=== PATIENT | female | born 1965 | race American Indian/Alaskan Native ===

== ENCOUNTER 2018-09-19 21:04 | Emergency (ER) | payer MEDICAID ==
[2018-09-19] MEDS ORDERED: KEPPRA 1,000 MG/NS 0.75% 100ML 1,000 MG/100 ML BAG IV ONE ×2 (21:12→21:32)
--- NOTE | 2018-09-19 21:56 | Cat Scan Report ---
FINAL REPORT PROCEDURE: CT HEAD/BRAIN WO CON TECHNIQUE: Computerized tomography of the head was performed without contrast material. HISTORY: sz ams COMPARISON: 03/05/2016. FINDINGS: Skull and scalp: Evidence of prior right parietal craniotomy and bilateral parietal guido holes.. Paranasal sinuses: Normal. Ventricles and subarachnoid spaces: Are prominent consistent with cerebral atrophy appropriate for pa tient's age.. Cerebrum: A large area of encephalomalacia involving the right parietal lobe with evidence of a prior right parietal craniotomy. An acute intra-axial or extra-axial hemorrhage or mass effect is not iden tified.. Cerebellum and brainstem: No evidence of hemorrhage, acute infarction or mass. Vasculature: Normal. Comments: None. IMPRESSION: No acute intracranial abnormality Stable appearance of right parietal encephalomalacia as seen on the prior study with evidence of prio r surgery.
[2018-09-19 22:10] LABS: Hematocrit 31.5 % (30.3-42.9); Hemoglobin 10.2 gm/dl (10.1-14.3); Mean Corpuscular HGB Conc 33 % (30-34); Mean Corpuscular Volume 95 fl (79-97); Platelet Count 277 K/mm3 (140-440); Red Blood Count 3.32 M/mm3 (3.65-5.03); Red Cell Distribution Width 13.6 % (13.2-15.2)
--- NOTE | 2018-09-19 22:23 | Emergency Department Report ---
ED General Adult HPI - General Chief complaint: Seizure Stated complaint: SEIZURE Time Seen by Provider: 09/19/18 21:11 Source: patient, family, EMS (ems notes not available at time of chart dictation. Verbal report received from EMS.), RN notes reviewed, old records reviewed Mode of arrival: Stretcher Limitations: Altered Mental Status - History of Present Illness Initial comments: This is a 52-year-old female. Her past medical history includes stroke, reported history of left-sided weakness, bipolar disorder, seizures. Patient's seizure medications include Keppra, 1500 mg twice daily, Lamictal, 150 mg once daily, and valproic acid, 750 mg, once daily. She is accompanied by her . As per verbal report from EMS, patient had 3-4 seizures today. Patient's family reports that patient was in the bed. There is no history of antecedent trauma. Family denies prodromal symptoms. EMS gave Ativan and Versed in the field. They reported normal Accu-Chek. In the emergency room, the patient was moving 4 extremities but was somewhat con fused. The patient could not describe exacerbating or relieving factors, qualitative nature of her symptoms, or radiation of her symptoms. As per her , there are no fevers, vomiting, chest pain, abdominal pain, and there is no urinary symptoms that he is aware of. Patient is currently slee ping in her stretcher, and in no acute distress. -: Sudden Radiation: other Quality: other Consistency: other Improves with: medication Worsens with: other Associated Symptoms: seizure - Related Data Home Medications Medication Instructions Recorded Confirmed Last Taken Venlafaxine [Effexor] 1 tab PO DAILY 03/13/15 09/19/18 08/10/18 clonazePAM 1 mg PO BID PRN 04/09/16 08/11/18 08/10/18 lamoTRIgine [LaMICtal] 150 mg PO BID 04/09/16 09/19/18 08/10/18 Previous Rx's Medication Instructions Recorded Last Taken Type levETIRAcetam [Keppra TAB] 1,500 mg PO BID #60 tablet 07/01/14 08/10/18 Rx Oxycodone HCl/Acetaminophen 1 each PO Q6HR PRN #20 tablet 08/04/16 08/10/18 Rx [Percocet 10/325 mg] Sulfamethoxazole/Trimethoprim 1 each PO BID #20 tablet 08/11/18 Unknown Rx [Bactrim DS TAB] lamoTRIgine [LaMICtal] 150 mg PO QDAY #30 tab 09/20/18 Unknown Rx Allergies Allergy/AdvReac Type Severity Reaction Status Date / Time aspirin Allergy Unknown Verified 10/04/15 10:43 latex Allergy Rash Verified 10/04/15 10:43 tetracycline [Tetracycline] Allergy Unknown Verified 10/04/15 10:43 ED Review of Systems ROS: Stated complaint: SEIZURE Other details as noted in HPI Comment: Unobtainable due to pts medical conditions ED Past Medical Hx - Past Medical History Previous Medical History?: Yes Hx Hypertension: Yes Hx CVA: Yes (2010) Hx Diabetes: Yes Hx Liver Disease: Yes Hx Sickle Cell Disease: Yes Hx Seizures: Yes Hx Psychiatric Treatment: Yes (BIPOLAR, cutter) Additional medical history: lupus - Surgical History Past Surgical History?: Yes Additional Surgical History: 2 brain surgeries, metal plate in head, GASTRIC BYPASS. HYSTERECTOMY - Social History Smoking Status: Never Smoker Substance Use Type: None - Medications Home Medications: Home Medications Medication Instructions Recorded Confirmed Last Taken Type levETIRAcetam [Keppra TAB] 1,500 mg PO BID #60 tablet 07/01/14 09/19/18 08/10/18 Rx Venlafaxine [Effexor] 1 tab PO DAILY 03/13/15 09/19/18 08/10/18 History clonazePAM 1 mg PO BID PRN 04/09/16 08/11/18 08/10/18 History lamoTRIgine [LaMICtal] 150 mg PO BID 04/09/16 09/19/18 08/10/18 History Oxycodone HCl/Acetaminophen 1 each PO Q6HR PRN #20 tablet 08/04/16 08/11/18 08/10/18 Rx [Percocet 10/325 mg] Sulfamethoxazole/Trimethoprim 1 each PO BID #20 tablet 08/11/18 Unknown Rx [Bactrim DS TAB] lamoTRIgine [LaMICtal] 150 mg PO QDAY #30 tab 09/20/18 Unknown Rx ED Physical Exam - General Limitations: Altered Mental Status, Physical Limitation General appearance: lethargic - Head Head exam: Present: atraumatic, normocephalic - Eye Eye exam: Present: normal appearance, PERRL - ENT ENT exam: Present: normal exam, normal orophraynx, mucous membranes moist, normal external ear exam - Neck Neck exam: Present: normal inspection, full ROM. Absent: tenderness, meningismus - Respiratory Respiratory exam: Present: normal lung sounds bilaterally. Absent: respiratory distress - Cardiovascular Cardiovascular Exam: Present: normal rhythm, tachycardia, normal heart sounds. Absent: systolic murmur, diastolic murmur, rubs, gallop - GI/Abdominal GI/Abdominal exam: Present: soft. Absent: distended, tenderness, guarding, rebound, rigid, pulsatile mass - Extremities Exam Extremities exam: Present: normal inspection, other (2+ pulses noted in the bilateral upper, lower extremities. Compartments soft. No long bony tenderness. The pelvis is stable.). Absent: pedal edema, joint swelling, calf tenderness - Back Exam Back exam: Present: normal inspection. Absent: tenderness, CVA tenderness (R), paraspinal tenderness, vertebral tenderness - Neurological Exam Neurological exam: Present: altered, other (there is no facial droop. Patient noted to be moving 4 extremities. Patient is confused and postictal. Unable to perform detailed neurologic examination secondary to postictal state, and prehospital administration of benzodiazepines) - Skin Skin exam: Present: warm, dry, intact, normal color. Absent: rash ED Course Vital Signs 09/19/18 09/19/18 09/19/18 21:09 21:10 21:15 Temperature 95.8 F L Pulse Rate 101 H 103 H 104 H Respiratory 13 18 14 Rate Blood Pressure 124/75 124/75 O2 Sat by Pulse 100 96 94 Oximetry 09/19/18 09/19/18 09/19/18 21:51 22:01 22:15 Temperature Pulse Rate 89 86 Respiratory 13 13 Rate Blood Pressure 112/73 112/73 119/80 O2 Sat by Pulse 95 94 95 Oximetry 09/19/18 09/19/18 09/19/18 22:31 22:45 23:01 Temperature Pulse Rate 85 84 83 Respiratory 12 13 13 Rate Blood Pressure 119/80 119/80 119/80 O2 Sat by Pulse 95 97 96 Oximetry 09/19/18 09/19/18 09/19/18 23:15 23:31 23:35 Temperature Pulse Rate 84 87 86 Respiratory 12 16 11 L Rate Blood Pressure 118/73 118/73 118/73 O2 Sat by Pulse 96 97 97 Oximetry 09/19/18 09/19/18 09/20/18 23:37 23:45 00:01 Temperature 97.6 F Pulse Rate 84 83 Respiratory 14 12 Rate Blood Pressure 118/73 118/73 O2 Sat by Pulse 96 98 Oximetry 09/20/18 09/20/18 09/20/18 00:15 00:31 00:45 Temperature Pulse Rate 84 86 84 Respiratory 13 13 13 Rate Blood Pressure 118/73 118/73 118/73 O2 Sat by Pulse 96 96 95 Oximetry 09/20/18 09/20/18 09/20/18 01:01 01:15 01:31 Temperature Pulse Rate 84 83 84 Respiratory 15 14 13 Rate Blood Pressure 118/73 132/79 132/79 O2 Sat by Pulse 96 97 96 Oximetry 09/20/18 09/20/18 09/20/18 01:45 02:01 02:15 Temperature Pulse Rate 83 82 83 Respiratory 13 16 12 Rate Blood Pressure 132/79 132/79 131/80 O2 Sat by Pulse 96 96 97 Oximetry 09/20/18 09/20/18 02:31 02:42 Temperature 97.6 F Pulse Rate 82 Respiratory 13 Rate Blood Pressure 131/80 O2 Sat by Pulse 97 Oximetry - Reevaluation(s) Reevaluation #1: 09/19/18 23:13 X-ray of the chest, interpreted by radiology, negative for acute disease. No documented fever, no cough, no hypoxia, no focal pulmonary findings. Clinically doubt pneumonia, aspiration at this time. Reevaluation #2: 09/20/18 00:02 Hypothermia resolved. Laboratory testing unremarkable. Urinalysis is not consistent with urinary tract infection. Still postictal. No additional convulsive events noted. Reevaluation #3: 09/20/18 03:29 The patient has been reassessed multiple times by this provider. In the 6 hours that she has been in the emergency department, the patient has not had tomy tional convulsive events. I go back to evaluate the patient, and she is speaking to me in full sentences, alert to name, year, andthat her neurolog[place]." She is able to walk with minimal assistance. Her feels comfortable to take her home. We will refill her Lamictal prescription, and she is counseled to not operate motor vehicles for the next 6 months, to take her seizure medication, and to follow up with an outpatient neurology specialist or her private neurologist. The patient's other medications, valproic acid, Keppra, appeared to be full. It appears that Lamictal is feeling prescription she requires a refill on. 09/20/18 03:31 ED Medical Decision Making - Lab Data Result diagrams: 09/19/18 21:48 09/19/18 21:48 Vital Signs 09/19/18 09/19/18 09/19/18 21:09 21:10 21:15 Temperature 95.8 F L Pulse Rate 101 H 103 H 104 H Respiratory 13 18 14 Rate Blood Pressure 124/75 124/75 O2 Sat by Pulse 100 96 94 Oximetry 09/19/18 21:51 Temperature Pulse Rate Respiratory Rate Blood Pressure 112/73 O2 Sat by Pulse 95 Oximetry Lab Results 09/19/18 09/19/18 Range/Units 21:48 22:12 WBC 6.6 (4.5-11.0) K/mm3 RBC 3.32 L (3.65-5.03) M/mm3 Hgb 10.2 (10.1-14.3) gm/dl Hct 31.5 (30.3-42.9) % MCV 95 (79-97) fl MCH 31 (28-32) pg MCHC 33 (30-34) % RDW 13.6 (13.2-15.2) % Plt Count 277 (140-440) K/mm3 POC Glucose 136 H (70-105) Lab Results 09/19/18 09/19/18 09/19/18 Range/Units 21:48 21:48 21:48 WBC 6.6 (4.5-11.0) K/mm3 RBC 3.32 L (3.65-5.03) M/mm3 Hgb 10.2 (10.1-14.3) gm/dl Hct 31.5 (30.3-42.9) % MCV 95 (79-97) fl MCH 31 (28-32) pg MCHC 33 (30-34) % RDW 13.6 (13.2-15.2) % Plt Count 277 (140-440) K/mm3 Sodium 141 (137-145) mmol/L Potassium 4.6 (3.6-5.0) mmol/L Chloride 103.8 (98-107) mmol/L Carbon Dioxide 29 (22-30) mmol/L Anion Gap 13 mmol/L BUN 16 (7-17) mg/dL Creatinine 1.1 (0.7-1.2) mg/dL Estimated GFR > 60 ml/min BUN/Creatinine Ratio 15 % Glucose 168 H (65-100) mg/dL POC Glucose (70-105) Calcium 9.2 (8.4-10.2) mg/dL Total Bilirubin 0.20 (0.1-1.2) mg/dL AST 19 (5-40) units/L ALT 13 (7-56) units/L Alkaline Phosphatase 119 (35-129) units/L Total Creatine Kinase 154 H (30-135) units/L Total Protein 7.4 (6.3-8.2) g/dL Albumin 3.8 L (3.9-5) g/dL Albumin/Globulin Ratio 1.1 % Salicylates < 0.3 L (2.8-20.0) mg/dL Acetaminophen (10.0-30.0) ug/mL Valproic Acid < 2.8 L (50-100) ug/mL Plasma/Serum Alcohol (0-0.07) % 09/19/18 09/19/18 09/19/18 Range/Units 21:48 21:48 22:12 WBC (4.5-11.0) K/mm3 RBC (3.65-5.03) M/mm3 Hgb (10.1-14.3) gm/dl Hct (30.3-42.9) % MCV (79-97) fl MCH (28-32) pg MCHC (30-34) % RDW (13.2-15.2) % Plt Count (140-440) K/mm3 Sodium (137-145) mmol/L Potassium (3.6-5.0) mmol/L Chloride (98-107) mmol/L Carbon Dioxide (22-30) mmol/L Anion Gap mmol/L BUN (7-17) mg/dL Creatinine (0.7-1.2) mg/dL Estimated GFR ml/min BUN/Creatinine Ratio % Glucose (65-100) mg/dL POC Glucose 136 H (70-105) Calcium (8.4-10.2) mg/dL Total Bilirubin (0.1-1.2) mg/dL AST (5-40) units/L ALT (7-56) units/L Alkaline Phosphatase (35-129) units/L Total Creatine Kinase (30-135) units/L Total Protein (6.3-8.2) g/dL Albumin (3.9-5) g/dL Albumin/Globulin Ratio % Salicylates (2.8-20.0) mg/dL Acetaminophen < 5.0 L (10.0-30.0) ug/mL Valproic Acid (50-100) ug/mL Plasma/Serum Alcohol < 0.01 (0-0.07) % - EKG Data -: EKG Interpreted by Me EKG shows normal: sinus rhythm Rate: normal - EKG Data 09/19/18 22:44 Motion artifact. Sinus tachycardia. Normal axis, QTC 446 ms. Motion artifact and V3. Low vo ltage in the lateral leads. Abnormal EKG. Appears grossly unchanged from prior EKGs from February 2009, with the exception of low voltage. - Radiology Data Radiology results: report reviewed, image reviewed interpreted by me: X-ray of the chest shows possible right lower lobe atelectasis versus pneumonia. Otherwise, no acute disease. Findings [facility] [address] [place] [address] Cat Scan Report Signed Patient: KARLEE PADGETT MR#: [id number] : 1965 Acct:[id number] Age/Sex: 52 / F ADM Date: 09/19/18 Loc: ED Attending Dr: Ordering Physician: BEATRIZ AJ MD Date of Service: 09/19/18 Procedure(s): CT head/brain wo con Accession Number(s): [id number] cc: BEATRIZ AJ MD FINAL REPORT PROCEDURE: CT HEAD/BRAIN WO CON TECHNIQUE: Computerized tomography of the head was performed without contrast material. HISTORY: sz ams COMPARISON: 03/05/2016. FINDINGS: Skull and scalp: Evidence of prior right parietal craniotomy and bilateral parietal guido holes.. Paranasal sinuses: Normal. Ventricles and subarachnoid spaces: Are prominent consistent with cerebral atrophy appropriate for patient's age.. Cerebrum: A large area of encephalomalacia involving the right parietal lobe with evidence of a prior right parietal craniotomy. An acute intra-axial or extra-axial hemorrhage or mass effect is not identified.. Cerebellum and brainstem: No evidence of hemorrhage, acute infarction or mass. Vasculature: Normal. Comments: None. IMPRESSION: No acute intracranial abnormality Stable appearance of right parietal encephalomalacia as seen on the prior study with evidence of prior surgery. Transcribed By: [facility] [place] Dictated By: JACK BAH Electronically Authenticated By: JACK BAH Signed Date/Time: 09/19/18 0723 - Medical Decision Making Differential diagnosis, including but not limited to, medication noncompliance, aspiration pneumonia, pneumonia, urinary tract infection, seizure, psychogenic seizure, postictal state Assessment and plan: 52-year-old female with documented history of seizure disorder, with reported history of multiple seizures today, now somewhat altered and postictal. Hypothermia reviewed and appreciated, this is most likely secondary to environmental exposure. There is no corroborating history from her to suggest an invasive bacterial infection. Thus far, the patient has been observed in the emergency room for approximately 90 minutes, without additional convulsive activity. She was given multiple rounds of benzodiazepines in the field, and is somewhat somnolent, this may be multifactorial, as the patient may also be postictal. She is protecting her airway at this time. Screening laboratory studies unremarkable. Valproic acid level noted to be subtherapeutic. Patient will be treated empirically with valproic acid, Keppra, and Lamictal. Urinalysis pending at this time. Critical care attestation.: If time is entered above; I have spent that time in minutes in the direct care of this critically ill patient, excluding procedure time. ED Disposition Clinical Impression: History of seizure, Medication refill Disposition: - TO HOME OR SELFCARE Is pt being admited?: No Does the pt Need Aspirin: No Condition: Good Additional Instructions: Do not drive or operate motor vehicles for the next 6 months. Please make certain to remain compliant with seizure medications. Noncompliance with seizure medications may result in breakthrough seizure, which in turn can cause disability, paralysis, , loss of quality of life. Urine toxicology screen demonstrated the presence of marijuana If patient is consuming cannabis, marijuana, I recommend that she discontinue, as this may make the patient more prone to having seizures. Patient should also avoid external exposure to cannabis, illicit substances. Please follow-up with your private neurologist within the next 2 weeks, or follow up with any of the listed neurology specialist, within the next 2 weeks. Please return to the emergency room, with new pain, worsened pain, migration of pain, projectile vomiting, change in mental status, confusion, inability to speak, inability to breathe,, worsened or different symptoms. Referrals: RAJEEV PRIETO MD [Referring] - 7-10 days VALORIE SIMPSON MD [Staff Physician] - 7-10 days NA SARAVIA MD [Staff Physician] - 7-10 days
[2018-09-19 22:24] LABS: Alanine Aminotransferase 13 units/L (7-56); Albumin 3.8 g/dL (3.9-5); BUN/Creatinine Ratio 15; Blood Urea Nitrogen 16 mg/dL (7-17); Calcium 9.2 mg/dL (8.4-10.2); Hemolysis Index 13
[2018-09-19] MEDS ORDERED: NACL 0.9% IV ONE (22:35)
[2018-09-19] MEDS ORDERED: DEPACON IV ONE (22:35)
[2018-09-19] MEDS ORDERED: LaMICtal PO ONE (22:40)
--- NOTE | 2018-09-19 23:12 | XRay Report ---
FINAL REPORT PROCEDURE: XR CHEST 1V AP TECHNIQUE: Chest radiograph anteroposterior view. CPT 51320 HISTORY: breakthrough seizure, questionable aspiration vers COMPARISON: No prior studies are available for comparison. FINDINGS: Heart: Normal. Mediastinum/Vessels: Normal. Lungs/Pleural space: Normal. Bony thorax: No acute osseous abnormality. Life support devices: None. IMPRESSION: No acute cardiopulmonary abnormality.
[2018-09-19 23:55] LABS: Bilirubin,Urine NEG (Negative); Blood,Urine NEG (Negative); Color,Urine Yellow (Yellow); Protein,Urine <15 mg/dL mg/dL (Negative); Urobilinogen,Urine < 2.0 mg/dL (<2.0)
[2018-09-20 00:02] LABS: Amphetamine Screen,Urine PRESUMPTIVE NEGATIVE; Cocaine Screen,Urine PRESUMPTIVE NEGATIVE; Methadone Screen,Urine PRESUMPTIVE NEGATIVE; Opiate Screen,Urine PRESUMPTIVE NEGATIVE
[2018-09-20 00:18] LABS: Benzodiazepines Screen,Urine PRESUMPTIVE POSITIVE; Cannabinoid Screen,Urine PRESUMPTIVE POSITIVE
[2018-09-20 04:36] VITALS: BP 145/93
== END 2018-09-20 04:00 | disposition home or self-care (01) ==
LOC: ED 21:04
DX: G40.909 Epilepsy, unspecified, not intractable, without status epilepticus (principal); Z76.0 Encounter for issue of repeat prescription; F31.9 Bipolar disorder, unspecified; I10 Essential (primary) hypertension; E11.9 Type 2 diabetes mellitus without complications; M32.9 Systemic lupus erythematosus, unspecified; Z98.84 Bariatric surgery status; Z90.710 Acquired absence of both cervix and uterus; Z88.6 Allergy status to analgesic agent; Z88.1 Allergy status to other antibiotic agents; Z91.040 Latex allergy status
CPT/HCPCS: 36415; 70450; 71045; 80053; 80164; 80307; 81001; 82550; 82962; 85027; 93005; 93010; 96365; 96367; 99285; G0480; J1953; 80320

== ENCOUNTER 2019-03-30 14:41 | Emergency (ER) | payer MEDICAID ==
[2019-03-30 15:20] VITALS: BP 145/88
--- NOTE | 2019-03-30 15:20 | Event Note ---
ED Screening Note Date of service: 03/30/19 Time: 15:17 ED Screening Note: This is a 53 y.o. F. that presents to the ER with right thumb pain s/p fall 3 weeks ago. This initial assessment/diagnostic orders/clinical plan/treatment(s) is/are subject to change based on patients health status, clinical progression and re- assessment by fellow clinical providers in the ED. Further treatment and workup at subsequent clinical providers discretion. Patient/guardian urged not to elope from the ED as their condition may be serious if not clinically assessed and managed. Initial orders include: XR right fingers
--- NOTE | 2019-03-30 15:48 | XRay Report ---
RIGHT HAND 3 VIEWS INDICATION: pain and swelling 1st digit, r/o fracture. COMPARISON: No relevant prior imaging study available. FINDINGS: No acute, displaced fracture location is seen. No foreign bodies. IMPRESSION: 1. No acute findings. Signer Name: Tommie Hawkins MD Signed: 03/30/2019 3:43 PM Workstation Name: [id number]
--- NOTE | 2019-03-30 16:36 | Emergency Department Report ---
ED Upper Extremity Inj HPI - General Chief Complaint: Fall Stated Complaint: HAND PAIN Time Seen by Provider: 03/30/19 15:17 Source: patient Mode of arrival: Ambulatory Limitations: No Limitations - History of Present Illness Initial Comments: 53-year-old obese -Serbian female with past medical history of diabetes, hypertension, bipolar disorder, seizures since emerge department complaining of continued right thumb pain status post fall that occurred 2 weeks ago. Patient states his walking up steps also balance and fell forward hitting a door with her thumb, causing pain and swelling to the thumb since the onset, which is continuing to blinker today. No numbness or tingling. No reinjury. Complaint: Injury to:: right, hand -: Sudden Other Extremity Injury: Fingers: Right Other Injuries: none Handedness: right Place: home Improves With: none Worsens With: immobilization Context: fall, direct blow Associated Symptoms: denies other symptoms - Related Data Home Medications Medication Instructions Recorded Confirmed Last Taken Venlafaxine [Effexor] 1 tab PO DAILY 03/13/15 09/19/18 08/10/18 clonazePAM 1 mg PO BID PRN 04/09/16 08/11/18 08/10/18 lamoTRIgine [LaMICtal] 150 mg PO BID 04/09/16 09/19/18 08/10/18 Previous Rx's Medication Instructions Recorded Last Taken Type levETIRAcetam [Keppra TAB] 1,500 mg PO BID #60 tablet 07/01/14 08/10/18 Rx Oxycodone HCl/Acetaminophen 1 each PO Q6HR PRN #20 tablet 08/04/16 08/10/18 Rx [Percocet 10/325 mg] Sulfamethoxazole/Trimethoprim 1 each PO BID #20 tablet 08/11/18 Unknown Rx [Bactrim DS TAB] lamoTRIgine [LaMICtal] 150 mg PO QDAY #30 tab 09/20/18 Unknown Rx traMADol [Ultram] 50 mg PO Q6HR PRN #10 tablet 03/30/19 Unknown Rx Allergies Allergy/AdvReac Type Severity Reaction Status Date / Time aspirin Allergy Unknown Verified 03/30/19 14:45 latex Allergy Rash Verified 03/30/19 14:45 tetracycline [Tetracycline] Allergy Unknown Verified 03/30/19 14:45 ED Review of Systems ROS: Stated complaint: HAND PAIN Other details as noted in HPI Comment: All other systems reviewed and negative ED Past Medical Hx - Past Medical History Previous Medical History?: Yes Hx Hypertension: Yes Hx CVA: Yes (2010) Hx Diabetes: Yes Hx Liver Disease: Yes Hx Sickle Cell Disease: Yes Hx Seizures: Yes Hx Psychiatric Treatment: Yes (BIPOLAR, cutter) Additional medical history: lupus - Surgical History Past Surgical History?: Yes Additional Surgical History: 2 brain surgeries, metal plate in head, GASTRIC BYPASS. HYSTERECTOMY - Social History Smoking Status: Never Smoker Substance Use Type: None - Medications Home Medications: Home Medications Medication Instructions Recorded Confirmed Last Taken Type levETIRAcetam [Keppra TAB] 1,500 mg PO BID #60 tablet 07/01/14 09/19/18 08/10/18 Rx Venlafaxine [Effexor] 1 tab PO DAILY 03/13/15 09/19/18 08/10/18 History clonazePAM 1 mg PO BID PRN 04/09/16 08/11/18 08/10/18 History lamoTRIgine [LaMICtal] 150 mg PO BID 04/09/16 09/19/18 08/10/18 History Oxycodone HCl/Acetaminophen 1 each PO Q6HR PRN #20 tablet 08/04/16 08/11/18 08/10/18 Rx [Percocet 10/325 mg] Sulfamethoxazole/Trimethoprim 1 each PO BID #20 tablet 08/11/18 Unknown Rx [Bactrim DS TAB] lamoTRIgine [LaMICtal] 150 mg PO QDAY #30 tab 09/20/18 Unknown Rx traMADol [Ultram] 50 mg PO Q6HR PRN #10 tablet 03/30/19 Unknown Rx ED Physical Exam - General Limitations: No Limitations General appearance: alert, in no apparent distress - Head Head exam: Present: atraumatic, normocephalic - Eye Eye exam: Present: normal appearance, PERRL, EOMI Pupils: Present: normal accommodation - ENT ENT exam: Present: mucous membranes moist - Neck Neck exam: Present: normal inspection - Respiratory Respiratory exam: Present: normal lung sounds bilaterally. Absent: respiratory distress - Cardiovascular Cardiovascular Exam: Present: regular rate, normal rhythm. Absent: systolic murmur, diastolic murmur, rubs, gallop - GI/Abdominal GI/Abdominal exam: Present: soft, normal bowel sounds - Extremities Exam Extremities exam: Present: normal inspection - Expanded Upper Extremity Exam Right Hand Wrist exam: Present: tenderness (to the base of the phone, the area of the snuffbox. There is pain with flexion. Strength is 45 due to pain. Pulses 2+. Capillary refills are brisk.) Neuro motor exam: Present: thumb opposition intact Neurosensory exam: Present: ulnar nerve intact, median nerve intact Vascular: Present: normal capillary refill - Back Exam Back exam: Present: normal inspection - Neurological Exam Neurological exam: Present: alert, oriented X3 - Psychiatric Psychiatric exam: Present: normal affect, normal mood - Skin Skin exam: Present: warm, dry, intact, normal color. Absent: rash ED Course Vital Signs 03/30/19 15:18 Temperature 98.3 F Pulse Rate 110 H Respiratory 18 Rate Blood Pressure 145/88 [Left] O2 Sat by Pulse 99 Oximetry Critical care attestation.: If time is entered above; I have spent that time in minutes in the direct care of this critically ill patient, excluding procedure time. ED Disposition Clinical Impression: Strain of thumb Disposition: DC-01 TO HOME OR SELFCARE Is pt being admited?: No Does the pt Need Aspirin: No Condition: Stable Instructions: Muscle Strain (ED), Finger Sprain (ED) Prescriptions: traMADol [Ultram] 50 mg PO Q6HR PRN #10 tablet PRN Reason: Pain Referrals: AGNES AWAD MD [Primary Care Provider] - 3-5 Days SARAH ABAD MD [Staff Physician] - 3-5 Days
== END 2019-03-30 16:42 | disposition home or self-care (01) ==
LOC: ED 14:41
DX: S56.011A Strain of flexor muscle, fascia and tendon of right thumb at forearm level, initial encounter (principal); I10 Essential (primary) hypertension; E11.9 Type 2 diabetes mellitus without complications; F31.9 Bipolar disorder, unspecified; M32.9 Systemic lupus erythematosus, unspecified; Z88.6 Allergy status to analgesic agent; Z91.040 Latex allergy status; Z88.1 Allergy status to other antibiotic agents; Z79.899 Other long term (current) drug therapy; Z86.73 Personal history of transient ischemic attack (TIA), and cerebral infarction without residual deficits; Z98.84 Bariatric surgery status; Z90.710 Acquired absence of both cervix and uterus; Z98.890 Other specified postprocedural states; W04.XXXA Fall while being carried or supported by other persons, initial encounter; Y93.89 Activity, other specified; Y92.098 Other place in other non-institutional residence as the place of occurrence of the external cause; Y99.8 Other external cause status
CPT/HCPCS: 99283

== ENCOUNTER 2019-09-29 15:18 | Emergency (ER) | payer MEDICAID ==
[2019-09-29 18:56] VITALS: BP 141/87
--- NOTE | 2019-09-29 19:05 | Event Note ---
ED Screening Note ED Screening Note: pt presents for a refill of her pain medication and blood pressure medication states she sees a pain specialist states she ran out of her pain medication and wants prescriptions advised pt that we could not write narcotic prescriptions for chronic pain and she would need to see her pcp or pain specialist advised pt that she could wait to be seen by a provider to be treated in the emergency department but we could not just write a prescriptions for narcotics, she became angry and states she is going to leave the emergency room if we were not going to write her narcotics she states she has the chronic pain from a chronic stroke she denies any symptoms at all, just states she has chronic pain according to the [facility] aware she was given oxycodone on 09/15 she was also given oxycodone on 09/04 This initial assessment/diagnostic orders/clinical plan/treatment(s) is/are subject to change based on patients health status, clinical progression and re- assessment by fellow clinical providers in the ED. Further treatment and workup at subsequent clinical providers discretion. Patient/guardian urged not to elope from the ED as their condition may be serious if not clinically assessed and managed.
== END 2019-09-29 19:01 | disposition left against medical advice (07) ==
LOC: ED 15:18
DX: Z76.0 Encounter for issue of repeat prescription (principal); Z53.21 Procedure and treatment not carried out due to patient leaving prior to being seen by health care provider

== ENCOUNTER 2021-02-16 12:06 | Outpatient (CLI) | payer MEDICAID ==
--- NOTE | 2021-02-16 14:46 | Cat Scan Report ---
CT ABDOMEN AND PELVIS WITHOUT CONTRAST INDICATION / CLINICAL INFORMATION: CALCULUS OF KIDNEY. TECHNIQUE: Axial CT images were obtained through the abdomen and pelvis without IV contrast. Sagittal and benitez l reformatted images. All CT scans at this location are performed using CT dose reduction for ALARA b y means of automated exposure control. COMPARISON: None available. FINDINGS: LOWER CHEST: No significant abnormality. LIVER: No significant abnormality. GALLBLADDER: There are numerous tiny gallstones in the gallbladder. No abnormal dilatation or wall th ickening. BILE DUCTS: No significant abnormality. PANCREAS: No significant abnormality. SPLEEN: No significant abnormality. ADRENALS: No significant abnormality. RIGHT KIDNEY and URETER: No significant abnormality. LEFT KIDNEY and URETER: No significant abnormality. STOMACH and SMALL BOWEL: Surgical changes are noted in the proximal stomach and mid small bowel, vanda elate with history. This may represent gastric bypass surgery. COLON: No significant abnormality. APPENDIX: No significant abnormality. PERITONEUM: No free fluid. No free air. No fluid collection. LYMPH NODES: No significant adenopathy. AORTA and ARTERIES: Mild atherosclerotic calcification without acute abnormality. IVC and VEINS: No significant abnormality. URINARY BLADDER: The bladder is mostly empty but unremarkable. REPRODUCTIVE ORGANS: Hysterectomy changes. No adnexal abnormality. ADDITIONAL FINDINGS: None. 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 IMPRESSION: No acute inflammatory process. No evidence for nephrolithiasis. Cholelithiasis. Hysterectomy. Signer Name: Hakeem Chaudhary Jr, MD Signed: 02/16/2021 2:41 PM Workstation Name: [id number]
== END 2021-02-16 12:07 | disposition home or self-care (01) ==
LOC: CT 12:06
PROVIDERS: ATTEND Urology
DX: N20.0 Calculus of kidney (principal); K80.20 Calculus of gallbladder without cholecystitis without obstruction; I70.0 Atherosclerosis of aorta; I25.10 Atherosclerotic heart disease of native coronary artery without angina pectoris; Z90.711 Acquired absence of uterus with remaining cervical stump; M47.814 Spondylosis without myelopathy or radiculopathy, thoracic region
CPT/HCPCS: 74176

== ENCOUNTER 2021-03-01 09:30 | Emergency (ER) | payer MEDICAID ==
--- NOTE | 2021-03-01 10:33 | Emergency Department Report ---
Blank Doc - Documentation Documentation: This is a 55-year-old female that presents with left-sided mid/lower back pain. Patient has history of stroke with left-sided weakness. Tachycardia in triage. Denies any fevers. Denies taking anything [id number] for pain. Denies any other complaints or symptoms. 1- This is a initial triage assessment/medical screening only. Full assessment and work-up will be completed once the patient is in proper hospital gown, ED bed and in a private room setting. This initial assessment/diagnostic orders/clinical plan/ treatment(s) is/are subject to change based on pt's health status, clinical progression and re-assessment by fellow clinical providers in the ED. Further treatment and workup at subsequent clinical providers discretion. Patient/guardians urged not to elope from ED as their condition may be serious if not clinically assessed and managed. 2-EKG, labs, imaging studies
--- NOTE | 2021-03-01 11:31 | XRay Report ---
ABDOMEN 3 VIEW(S) INDICATION / CLINICAL INFORMATION: tachycardia with back pains. COMPARISON: CT dated 02/16/21 FINDINGS: TUBES / LINES: None. BOWEL GAS PATTERN: No significant abnormality. Gastric bypass postsurgical findings. FREE AIR / EXTRALUMINAL GAS: None seen. ADDITIONAL FINDINGS: No significant additional findings. CHEST: Visualized chest shows no significant abnormality. IMPRESSION: 1. No bowel obstruction or free air. Signer Name: Kim Lovett MD Signed: 03/01/2021 11:26 AM Workstation Name: [id number]
[2021-03-01 12:48] LABS: Basophils # (Auto) 0.1 K/mm3 (0.0-0.1); Basophils % (Auto) 0.7 % (0.0-1.8); Eosinophils # (Auto) 0.2 K/mm3 (0.0-0.4); Eosinophils % (Auto) 1.9 % (0.0-4.3); Hematocrit 37.7 % (30.3-42.9); Lymphocytes # (Auto) 2.1 K/mm3 (1.2-5.4); Mean Corpuscular HGB Conc 32 % (30-34); Mean Corpuscular Volume 90 fl (79-97); Monocytes # (Auto) 0.4 K/mm3 (0.0-0.8); Monocytes % (Auto) 4.7 % (0.0-7.3); Platelet Count 359 K/mm3 (140-440); Red Blood Count 4.19 M/mm3 (3.65-5.03); Red Cell Distribution Width 14.9 % (13.2-15.2)
[2021-03-01 12:58] LABS: INR 0.94 (0.87-1.13)
[2021-03-01 12:59] LABS: Partial Thromboplastin Time 24.4 Sec. (24.2-36.6)
[2021-03-01 13:04] LABS: Alanine Aminotransferase 7 units/L (7-56); Albumin 4.4 g/dL (3.9-5); BUN/Creatinine Ratio 13; Blood Urea Nitrogen 12 mg/dL (7-17); Calcium 9.2 mg/dL (8.4-10.2); Hemolysis Index 11
[2021-03-01] MEDS ORDERED: fentaNYL 100 MCG/2 ML INJ IV ONE (16:31)
[2021-03-01] MEDS ORDERED: levETIRAcetam 1000 MG/NS 0.75% 1,000 MG/100 ML BAG IV ONE (16:31)
[2021-03-01] MEDS ORDERED: ONDANSETRON 4 MG/2 ML INJ IV ONE (16:31)
[2021-03-01] MEDS ORDERED: SODIUM CHLORIDE 0.9% 1000 ML 1,000 ML IV ONE (16:34)
--- NOTE | 2021-03-01 16:37 | Emergency Department Report ---
HPI - General Chief Complaint: Back Pain/Injury Time Seen by Provider: 03/01/21 10:21 - HPI HPI: Room 4 The patient is a 55-year-old female present with a chief complaint of of back pain. The patient states for the past 3 days she has had a constant aching pain in her left lower back radiating down her leg. Patient describes the pain is constant in nature and states it worsens with movement. Patient denies any preceding trauma. Patient denies dysuria or hematuria. Patient currently gives her pain a score of 10/10 ED Past Medical Hx - Past Medical History Hx Hypertension: Yes Hx CVA: Yes (2010) Hx Diabetes: Yes Hx Liver Disease: Yes Hx Sickle Cell Disease: Yes Hx Seizures: Yes Hx Psychiatric Treatment: Yes (BIPOLAR, cutter) Additional medical history: lupus - Surgical History Additional Surgical History: 2 brain surgeries, metal plate in head, GASTRIC BYPASS. HYSTERECTOMY - Family History Family history: no significant - Social History Smoking Status: Never Smoker Substance Use Type: None (Denies illicit drug use) - Medications Home Medications: Home Medications Medication Instructions Recorded Confirmed Last Taken Type levETIRAcetam [Keppra TAB] 1,500 mg PO BID #60 tablet 07/01/14 09/19/18 08/10/18 Rx Venlafaxine [Effexor] 1 tab PO DAILY 03/13/15 09/19/18 08/10/18 History clonazePAM 1 mg PO BID PRN 04/09/16 08/11/18 08/10/18 History lamoTRIgine [LaMICtal] 150 mg PO BID 04/09/16 09/19/18 08/10/18 History Oxycodone HCl/Acetaminophen 1 each PO Q6HR PRN #20 tablet 08/04/16 08/11/18 1 10/11/17 Rx [Percocet 10/325 mg] Sulfamethoxazole/Trimethoprim 1 each PO BID #20 tablet 08/11/18 Unknown Rx [Bactrim DS TAB] lamoTRIgine [LaMICtal] 150 mg PO QDAY #30 tab 09/20/18 Unknown Rx traMADoL [Ultram] 50 mg PO Q6HR PRN #10 tablet 03/30/19 Unknown Rx Cyclobenzaprine [Flexeril] 10 mg PO TID PRN #10 tablet 03/01/21 Unknown Rx HYDROcodone/APAP 5-325 [[place] 1 - 2 each PO Q6HR PRN #10 tablet 03/01/21 Unknown Rx 5/325] ED Review of Systems ROS: Stated complaint: lt side body pains Other details as noted in HPI Constitutional: denies: fever Eyes: denies: eye pain ENT: denies: throat pain Respiratory: no symptoms reported Cardiovascular: denies: chest pain Endocrine: no symptoms reported Gastrointestinal: denies: nausea, vomiting Genitourinary: denies: dysuria, hematuria Musculoskeletal: back pain Neurological: denies: headache Physical Exam - Physical Exam Vital Signs: Vital Signs 03/01/21 09:45 Temperature 98.7 F Pulse Rate 121 H Respiratory 20 Rate Blood Pressure 147/89 O2 Sat by Pulse 100 Oximetry Laboratory Tests 03/01/21 03/01/21 03/01/21 12:26 12:26 12:26 WBC 8.6 RBC 4.19 Hgb 12.0 Hct 37.7 MCV 90 MCH 29 MCHC 32 RDW 14.9 Plt Count 359 Lymph % (Auto) 25.0 War[place] % (Auto) 4.7 Eos % (Auto) 1.9 Baso % (Auto) 0.7 Lymph # (Auto) 2.1 [place]rick # (Auto) 0.4 Eos # (Auto) 0.2 Baso # (Auto) 0.1 Seg Neutrophils % 67.7 Seg Neutrophils # 5.8 PT 13.1 INR 0.94 APTT 24.4 Sodium 139 Potassium 3.9 Chloride 105.4 Carbon Dioxide 21 L Anion Gap 17 BUN 12 Creatinine 0.9 Estimated GFR > 60 BUN/Creatinine Ratio 13 Glucose 138 H Calcium 9.2 Total Bilirubin 0.30 AST 13 ALT 7 Alkaline Phosphatase 122 Total Protein 8.3 H Albumin 4.4 Albumin/Globulin Ratio 1.1 Urine Color Urine Turbidity Urine pH Ur Specific [place] Urine Protein Urine Glucose (UA) Urine Ketones Urine Blood Urine Nitrite Urine Bilirubin Urine Ictotest Urine Urobilinogen Ur Leukocyte Esterase Urine WBC (Auto) Urine RBC (Auto) U Epithel Cells (Auto) Urine Mucus 03/01/21 19:02 WBC RBC Hgb Hct MCV MCH MCHC RDW Plt Count Lymph % (Auto) Warrick % (Auto) Eos % (Auto) Baso % (Auto) Lymph # (Auto) [place] # (Auto) Eos # (Auto) Baso # (Auto) Seg Neutrophils % Seg Neutrophils # PT INR APTT Sodium Potassium Chloride Carbon Dioxide Anion Gap BUN Creatinine Estimated GFR BUN/Creatinine Ratio Glucose Calcium Total Bilirubin AST ALT Alkaline Phosphatase Total Protein Albumin Albumin/Globulin Ratio Urine Color Yellow Urine Turbidity Clear Urine pH 5.0 Ur Specific [place] 1.030 Urine Protein <15 mg/dl Urine Glucose (UA) Neg Urine Ketones Tr Urine Blood Neg Urine Nitrite Neg Urine Bilirubin Mod Urine Ictotest Negative Urine Urobilinogen < 2.0 Ur Leukocyte Esterase Neg Urine WBC (Auto) 2.0 Urine RBC (Auto) 1.0 U Epithel Cells (Auto) 1.0 Urine Mucus Few Physical Exam: GENERAL: The patient is well-developed well-nourished female lying on stretcher not appearing to be in acute distress. [] HEENT: Normocephalic. Atraumatic. Extraocular motions are intact. Patient has moist mucous membranes. NECK: Supple. Trachea midline CHEST/LUNGS: Clear to auscultation. There is no respiratory distress noted. HEART/CARDIOVASCULAR: Regular. There is no tachycardia. There is no gallop rub or murmur. ABDOMEN: Abdomen is soft, nontender. Patient has normal bowel sounds. There is no abdominal distention. SKIN: There is no rash. There is no edema. There is no diaphoresis. NEURO: The patient is awake, alert, and oriented. The patient is cooperative. The patient has no focal neurologic deficits. The patient has normal speech. GCS 15. Left-sided weakness from previous CVA MUSCULOSKELETAL: There is left CVA pain. There is no evidence of acute injury. ED Course Vital Signs 03/01/21 09:45 Temperature 98.7 F Pulse Rate 121 H Respiratory 20 Rate Blood Pressure 147/89 O2 Sat by Pulse 100 Oximetry ED Medical Decision Making - Lab Data Result diagrams: 03/01/21 12:26 03/01/21 12:26 Laboratory Tests 03/01/21 03/01/21 03/01/21 12:26 12:26 12:26 WBC 8.6 RBC 4.19 Hgb 12.0 Hct 37.7 MCV 90 MCH 29 MCHC 32 RDW 14.9 Plt Count 359 Lymph % (Auto) 25.0 [place]rick % (Auto) 4.7 Eos % (Auto) 1.9 Baso % (Auto) 0.7 Lymph # (Auto) 2.1 Warrick # (Auto) 0.4 Eos # (Auto) 0.2 Baso # (Auto) 0.1 Seg Neutrophils % 67.7 Seg Neutrophils # 5.8 PT 13.1 INR 0.94 APTT 24.4 Sodium 139 Potassium 3.9 Chloride 105.4 Carbon Dioxide 21 L Anion Gap 17 BUN 12 Creatinine 0.9 Estimated GFR > 60 BUN/Creatinine Ratio 13 Glucose 138 H Calcium 9.2 Total Bilirubin 0.30 AST 13 ALT 7 Alkaline Phosphatase 122 Total Protein 8.3 H Albumin 4.4 Albumin/Globulin Ratio 1.1 Urine Color Urine Turbidity Urine pH Ur Specific [place] Urine Protein Urine Glucose (UA) Urine Ketones Urine Blood Urine Nitrite Urine Bilirubin Urine Ictotest Urine Urobilinogen Ur Leukocyte Esterase Urine WBC (Auto) Urine RBC (Auto) U Epithel Cells (Auto) Urine Mucus 03/01/21 19:02 WBC RBC Hgb Hct MCV MCH MCHC RDW Plt Count Lymph % (Auto) [place] % (Auto) Eos % (Auto) Baso % (Auto) Lymph # (Auto) Warrick # (Auto) Eos # (Auto) Baso # (Auto) Seg Neutrophils % Seg Neutrophils # PT INR APTT Sodium Potassium Chloride Carbon Dioxide Anion Gap BUN Creatinine Estimated GFR BUN/Creatinine Ratio Glucose Calcium Total Bilirubin AST ALT Alkaline Phosphatase Total Protein Albumin Albumin/Globulin Ratio Urine Color Yellow Urine Turbidity Clear Urine pH 5.0 Ur Specific [place] 1.030 Urine Protein <15 mg/dl Urine Glucose (UA) Neg Urine Ketones Tr Urine Blood Neg Urine Nitrite Neg Urine Bilirubin Mod Urine Ictotest Negative Urine Urobilinogen < 2.0 Ur Leukocyte Esterase Neg Urine WBC (Auto) 2.0 Urine RBC (Auto) 1.0 U Epithel Cells (Auto) 1.0 Urine Mucus Few - Radiology Data Radiology results: report reviewed (CT abdomen pelvis, CT abdomen pelvis with IV contrast), image reviewed (CT abdomen pelvis, CT abdomen pelvis with IV contrast) [facility] [address] [place] [address] Cat Scan Report Signed Patient: KARLEE PADGETT MR#: [id number] : 1965 Acct:[id number] Age/Sex: 55 / F ADM Date: 03/01/21 Loc: ED Attending Dr: Ordering Physician: VALERIE CORDERO MD Date of Service: 03/01/21 Procedure(s): CT abdomen pelvis wo con Accession Number(s): [id number] cc: VALERIE CORDERO MD CT ABDOMEN AND PELVIS WITHOUT CONTRAST INDICATION / CLINICAL INFORMATION: Low back, left flank pain. TECHNIQUE: Axial CT images were obtained through the abdomen and pelvis without IV contrast. All CT scans at this location are performed using CT dose reduction for ALARA by means of automated exposure control. COMPARISON: None available. FINDINGS: LOWER CHEST: Mosaic attenuation at the lung bases left greater than right. LIVER: No significant abnormality. GALLBLADDER: Mildly distended gallbladder containing stones. No wall thickening. BILE DUCTS: No significant abnormality. PANCREAS: No significant abnormality. SPLEEN: No significant abnormality. ADRENALS: No significant abnormality. RIGHT KIDNEY / URETER: No significant abnormality. LEFT KIDNEY / URETER: Vague low- density area lateral left kidney best seen series 2, image 50). 2 mm cortical based calcification lower pole. STOMACH / SMALL BOWEL: Previous gastric surgery. COLON: No significant abnormality. APPENDIX: No significant abnormality. PERITONEUM: No free fluid. No free air. No fluid collection. LYMPH NODES: No significant adenopathy. VASCULAR STRUCTURES: No significant abnormality. URINARY BLADDER: Mild distention. No wall thickening. REPRODUCTIVE ORGANS: Uterus surgically absent. ADDITIONAL FINDINGS: None. SKELETAL SYSTEM: No significant abnormality. IMPRESSION: 1. Indeterminate vague area left kidney. Possibilities include renal cyst, renal lesion or focal area of pyelonephritis. This area could be better evaluated with follow-up multiphase CT. 2. No obstructing stone. 3. Gallstones with mild gallbladder distention. Signer Name: Jae Winston MD Signed: 03/01/2021 6:25 PM Workstation Name: [id number] Transcribed By: ES Dictated By: Jae Winston MD Electronically Authenticated By: Jae Winston MD Signed Date/Time: 03/01/211824 DD/ 17 TD/TT: Print Cancel [facility] [address] [place] [address] Cat Scan Report Signed Patient: KARLEE PADGETT MR#: [id number] : 1965 Acct:[id number] Age/Sex: 55 / F ADM Date: 03/01/21 Loc: ED Attending Dr: Ordering Physician: VALERIE CORDERO MD Date of Service: 03/01/21 Procedure(s): CT abdomen pelvis w con Accession Number(s): [id number] cc: VALERIE CORDERO MD CT ABDOMEN AND PELVIS WITH CONTRAST INDICATION / CLINICAL INFORMATION: Possible lesion in the left kidney on noncontrast CT performed earlier today. TECHNIQUE: Axial CT images were obtained through the abdomen and pelvis after 100 cc of Omnipaque [address] scans at this location are performed using CT dose reduction for ALARA by means of automated exposure control. Postcontrast arterial, venous and delayed images were obtained. COMPARISON: CT scan dated 03/01/2021 FINDINGS: LOWER CHEST: No significant abnormality. LIVER: No significant abnormality. GALLBLADDER: Cholelithiasis. The gallbladder is mildly distended BILE DUCTS: No significant abnormality. PANCREAS: No significant abnormality. SPLEEN: No significant abnormality. ADRENALS: No significant abnormality. RIGHT KIDNEY / URETER: There are multiple small hypodensities likely representing cysts. These are too small to characterize. LEFT KIDNEY / URETER: There are multiple small hypodensities in the left kidney. Most of these are too small to characterize by Hounsfield unit measurements. The lower pole of the left kidney measures 29 Hounsfield units on precontrast images and measures 39 Hounsfield units on postcontrast images this is different than the area described on the initial CT. The area of interest on the initial noncontrast CT there is a stable hypodensity which measures approximately 12 Hounsfield units on precontrast images and measures 13 Hounsfield units on postcontrast images. There are additional tiny hypodensities which are too small to characterize. STOMACH / SMALL BOWEL: Changes of gastric bypass are noted COLON: No significant abnormality. APPENDIX: No significant abnormality. PERITONEUM: No free fluid. No free air. No fluid collection. LYMPH NODES: No sig nificant adenopathy. AORTA / ARTERIES: No significant abnormality. IVC / VEINS: No significant abnormality. URINARY BLADDER: No significant abnormality. REPRODUCTIVE ORGANS: No significant abnormality. ADDITIONAL FINDINGS: None. SKELETAL SYSTEM: No significant abnormality. IMPRESSION: 1. In the area of interest in the left kidney there is a small cyst which does not enhance following contrast administration. 2. There is a hypodensity in the lower pole of the left kidney which measures 1.5 cm and shows mild enhancement measuring 29 Hounsfield units on precontrast images and 39 Hounsfield units on postcontrast images. This abnormality should be followed. Nonemergent urologic consultation is recommended. 3-6 month follow-up CT is recommended Signer Name: Krishna Barbosa MD Signed: 03/01/2021 8:50 PM Workstation Name: [id number] Transcribed By: SS Dictated By: Krishna Barbosa MD Electronically Authenticated By: Krishna Barbosa MD Signed Date/Time: 03/01/212049 DD/ 39 TD/TT: Print Cancel - Medical Decision Making CT findings discussed with patient. Informed patient that she should follow up with a urologist for further evaluation and is recommended she have repeat imaging in 3 to 6 months. Patient verbalized understanding - Differential Diagnosis Renal colic, pyelonephritis, lumbar radiculopathy, dehydration Critical care attestation.: If time is entered above; I have spent that time in minutes in the direct care of this critically ill patient, excluding procedure time. ED Disposition Clinical Impression: Lumbar radiculopathy, Renal cyst, Lesion of left [place] kidney Disposition: TO HOME OR SELFCARE Is pt being admited?: No Does the pt Need Aspirin: No Condition: Stable Instructions: Radicular Pain Additional Instructions: Return to the emergency department should you develop worsening symptoms, inability to tolerate food or liquids, high fever or any other concerns Prescriptions: Cyclobenzaprine [Flexeril] 10 mg PO TID PRN #10 tablet PRN Reason: Muscle Spasm HYDROcodone/APAP 5-325 [[place] 5/325] 1 - 2 each PO Q6HR PRN #10 tablet PRN Reason: Pain Referrals: WENDIE KENT,KATHIE [Other] - 3-5 Days SARHA LOPEZ MD [Staff Physician] - 3-5 Days (Dr. Lopez is an orthopedic surgeon. Please follow-up with him for further evaluation of your back pain) DARION MARTINEZ MD [Staff Physician] - 3-5 Days (Dr. Martinez is a urologist. Please follow-up with him for further evaluation. The lesion in the left lower pole of your kidney should be followed up on in 3 to 6 months.) Time of Disposition: 21:00
[2021-03-01] MEDS ORDERED: levETIRAcetam 500 MG in DEXTROSE 5% IN WATER 100 ML IV ONE (17:31)
--- NOTE | 2021-03-01 18:29 | Cat Scan Report ---
CT ABDOMEN AND PELVIS WITHOUT CONTRAST INDICATION / CLINICAL INFORMATION: Low back, left flank pain. TECHNIQUE: Axial CT images were obtained through the abdomen and pelvis without IV contrast. All CT scans at this location are performed using CT dose reduction for ALARA by means of automated exposure control. COMPARISON: None available. FINDINGS: LOWER CHEST: Mosaic attenuation at the lung bases left greater than right. LIVER: No significant abnormality. GALLBLADDER: Mildly distended gallbladder containing stones. No wall thickening. BILE DUCTS: No significant abnormality. PANCREAS: No significant abnormality. SPLEEN: No significant abnormality. ADRENALS: No significant abnormality. RIGHT KIDNEY / URETER: No significant abnormality. LEFT KIDNEY / URETER: Vague low-density area lateral left kidney best seen series 2, image 50). 2 mm cortical based calcification lower pole. STOMACH / SMALL BOWEL: Previous gastric surgery. COLON: No significant abnormality. APPENDIX: No significant abnormality. PERITONEUM: No free fluid. No free air. No fluid collection. LYMPH NODES: No significant adenopathy. VASCULAR STRUCTURES: No significant abnormality. URINARY BLADDER: Mild distention. No wall thickening. REPRODUCTIVE ORGANS: Uterus surgically absent. ADDITIONAL FINDINGS: None. SKELETAL SYSTEM: No significant abnormality. IMPRESSION: 1. Indeterminate vague area left kidney. Possibilities include renal cyst, renal lesion or focal area of pyelonephritis. This area could be better evaluated with follow-up multiphase CT. 2. No obstructing stone. 3. Gallstones with mild gallbladder distention. Signer Name: Jae Winston MD Signed: 03/01/2021 6:25 PM Workstation Name: [id number]
[2021-03-01] MEDS ORDERED: HYDROmorphone 1 MG/1 ML INJ IV ONE ×2 (18:31→19:56)
[2021-03-01 19:35] LABS: Bilirubin,Urine MOD (Negative); Blood,Urine NEG (Negative); Color,Urine Yellow (Yellow); Mucus,Urine FEW /HPF; Protein,Urine <15 mg/dL mg/dL (Negative); Urobilinogen,Urine < 2.0 mg/dL (<2.0)
[2021-03-01 19:44] LABS: Ictotest,Urine Negative (Negative)
--- NOTE | 2021-03-01 20:54 | Cat Scan Report ---
CT ABDOMEN AND PELVIS WITH CONTRAST INDICATION / CLINICAL INFORMATION: Possible lesion in the left kidney on noncontrast CT performed [place] today. TECHNIQUE: Axial CT images were obtained through the abdomen and pelvis after 100 cc of Omnipaque [address] scans at this location are performed using CT dose reduction for ALARA by means of automated exposure control. Postcontrast arterial, venous and delayed images were obtained. COMPARISON: CT scan dated 03/01/2021 FINDINGS: LOWER CHEST: No significant abnormality. LIVER: No significant abnormality. GALLBLADDER: Cholelithiasis. The gallbladder is mildly distended BILE DUCTS: No significant abnormality. PANCREAS: No significant abnormality. SPLEEN: No significant abnormality. ADRENALS: No significant abnormality. RIGHT KIDNEY / URETER: There are multiple small hypodensities likely representing cysts. These are to o small to characterize. LEFT KIDNEY / URETER: There are multiple small hypodensities in the left kidney. Most of these are to o small to characterize by Hounsfield unit measurements. The lower pole of the left kidney measures 29 Hounsfield units on precontrast images and measures 39 Hounsfield units on postcontrast images this is different than the area described on the initial CT. The area of interest on the initial noncontrast CT there is a stable hypodensity which measures appro ximately 12 Hounsfield units on precontrast images and measures 13 Hounsfield units on postcontrast i mages. There are additional tiny hypodensities which are too small to characterize. STOMACH / SMALL BOWEL: Changes of gastric bypass are noted COLON: No significant abnormality. APPENDIX: No significant abnormality. PERITONEUM: No free fluid. No free air. No fluid collection. LYMPH NODES: No significant adenopathy. AORTA / ARTERIES: No significant abnormality. IVC / VEINS: No significant abnormality. URINARY BLADDER: No significant abnormality. REPRODUCTIVE ORGANS: No significant abnormality. ADDITIONAL FINDINGS: None. SKELETAL SYSTEM: No significant abnormality. IMPRESSION: 1. In the area of interest in the left kidney there is a small cyst which does not enhance following contrast administration. 2. There is a hypodensity in the lower pole of the left kidney which measures 1.5 cm and shows mild e nhancement measuring 29 Hounsfield units on precontrast images and 39 Hounsfield units on postcontras t images. This abnormality should be followed. Nonemergent urologic consultation is recommended. 3-6 month follow-up CT is recommended Signer Name: Krishna Barbosa MD Signed: 03/01/2021 8:50 PM Workstation Name: [id number]
[2021-03-01 21:20] VITALS: BP 129/62
== END 2021-03-01 21:15 | disposition home or self-care (01) ==
LOC: ED 09:30
DX: M54.16 Radiculopathy, lumbar region (principal); N28.1 Cyst of kidney, acquired; N28.9 Disorder of kidney and ureter, unspecified; I10 Essential (primary) hypertension; E11.8 Type 2 diabetes mellitus with unspecified complications; R56.9 Unspecified convulsions; K76.9 Liver disease, unspecified; D57.1 Sickle-cell disease without crisis; F31.9 Bipolar disorder, unspecified
CPT/HCPCS: 36415; 74022; 74176; 74177; 80053; 81001; 85025; 85610; 85730; 93005; 96365; 96375; 96376; 99284; J1170; J1953; J2405; J3010; J7030; Q9967; 96361

== ENCOUNTER 2021-03-06 09:18 | Emergency (ER) | payer MEDICAID ==
[2021-03-06] MEDS ORDERED: KETOROLAC 60 MG/2 ML INJ IM ONE (10:40)
[2021-03-06] MEDS ORDERED: dexAMETHasone 4 MG/ML VIAL IM ONE (10:40)
--- NOTE | 2021-03-06 11:11 | Emergency Department Report ---
ED Back Pain/Injury HPI - General Chief Complaint: Pain General Stated Complaint: LOWER BACK PAIN / LEFT LEG Time Seen by Provider: 03/06/21 10:18 Source: patient Limitations: Physical Limitation - History of Present Illness Initial Comments: Patient is a 55-year-old female presents emergency room with complaints of left lower back pain that radiates down her left leg that began approximately a week ago. She states her pain is worse with movement, laying flat, laying on that side. She denies any fall or injury. Patient was evaluated in the emergency department on 03/01/2021 which showed 1. In the area of interest in the left kidney there is a small cyst which does not enhance following contrast administration. 2. There is a hypodensity in the lower pole of the left kidney which measures 1.5 cm and shows mild enhancement measuring 29 Hounsfield units on precontrast images and 39 Hounsfield units on postcontrast images. This abnormality should be followed. Nonemergent urologic consultation is recommended. 3-6 month follow-up CT is recommended. she states that she made appointment with the urologist for 03/08/2021. She was diagnosed with lumbar radiculopathy and given [place] and Flexeril. She states despite the medications she is continuing to have pain. Patient has a history of CVA and has left-sided deficits, she denies any worsening of her left-sided deficits or acute numbness or weakness. She denies any fever, nausea, vomiting, diarrhea, chest pain, shortness of breath, abdominal pain, urinary symptoms, bowel or bladder incontinence, saddle numbness. she states she also has a hx of fibromyalgia and diabetes which she reports is well controlled. - Related Data Home Medications Medication Instructions Recorded Confirmed Last Taken Venlafaxine [Effexor] 1 tab PO DAILY 03/13/15 09/19/18 08/10/18 clonazePAM 1 mg PO BID PRN 04/09/16 08/11/18 08/10/18 lamoTRIgine [LaMICtal] 150 mg PO BID 04/09/16 09/19/18 08/10/18 Previous Rx's Medication Instructions Recorded Last Taken Type levETIRAcetam [Keppra TAB] 1,500 mg PO BID #60 tablet 07/01/14 08/10/18 Rx Oxycodone HCl/Acetaminophen 1 each PO Q6HR PRN #20 tablet 08/04/16 08/10/18 Rx [Percocet 10/325 mg] Sulfamethoxazole/Trimethoprim 1 each PO BID #20 tablet 08/11/18 Unknown Rx [Bactrim DS TAB] lamoTRIgine [LaMICtal] 150 mg PO QDAY #30 tab 09/20/18 Unknown Rx traMADoL [Ultram] 50 mg PO Q6HR PRN #10 tablet 03/30/19 Unknown Rx Cyclobenzaprine [Flexeril] 10 mg PO TID PRN #10 tablet 03/01/21 Unknown Rx HYDROcodone/APAP 5-325 [[place] 1 - 2 each PO Q6HR PRN #10 tablet 03/01/21 Unknown Rx 5/325] Gabapentin 100 mg PO TID #30 capsule 03/06/21 Unknown Rx Meloxicam [Mobic] 7.5 mg PO QDAY #10 tablet 03/06/21 Unknown Rx Menthol/Camphor [[place] 1 applicatio TP BID #18 oint...g. 03/06/21 Unknown Rx Ointment] Allergies Allergy/AdvReac Type Severity Reaction Status Date / Time aspirin Allergy Unknown Verified 03/30/19 14:45 latex Allergy Rash Verified 03/30/19 14:45 tetracycline [Tetracycline] Allergy Unknown Verified 03/30/19 14:45 ED Review of Systems ROS: Stated complaint: LOWER BACK PAIN / LEFT LEG Other details as noted in HPI Comment: All other systems reviewed and negative ED Past Medical Hx - Past Medical History Previous Medical History?: Yes Hx Hypertension: Yes Hx CVA: Yes (2010) Hx Diabetes: Yes Hx Liver Disease: Yes Hx Sickle Cell Disease: Yes Hx Seizures: Yes Hx Psychiatric Treatment: Yes (BIPOLAR, cutter) Additional medical history: lupus, Renal cyst, Lumbar radiculopathy - Surgical History Past Surgical History?: Yes Additional Surgical History: 2 brain surgeries, metal plate in head, GASTRIC BYPASS. HYSTERECTOMY - Social History Smoking Status: Never Smoker Substance Use Type: Prescribed - Medications Home Medications: Home Medications Medication Instructions Recorded Confirmed Last Taken Type levETIRAcetam [Keppra TAB] 1,500 mg PO BID #60 tablet 07/01/14 09/19/18 08/10/18 Rx Venlafaxine [Effexor] 1 tab PO DAILY 03/13/15 09/19/1808/10/18 History clonazePAM 1 mg PO BID PRN 04/09/16 08/11/18 08/10/18 History lamoTRIgine [LaMICtal] 150 mg PO BID 04/09/16 09/19/18 08/10/18 History Oxycodone HCl/Acetaminophen 1 each PO Q6HR PRN #20 tablet 08/04/16 08/11/18 08/10/18 Rx [Percocet 10/325 mg] Sulfamethoxazole/Trimethoprim 1 each PO BID #20 tablet 08/11/18 Unknown Rx [Bactrim DS TAB] lamoTRIgine [LaMICtal] 150 mg PO QDAY #30 tab 09/20/18 Unknown Rx traMADoL [Ultram] 50 mg PO Q6HR PRN #10 tablet 03/30/19 Unknown Rx Cyclobenzaprine [Flexeril] 10 mg PO TID PRN #10 tablet 03/01/21 Unknown Rx HYDROcodone/APAP 5-325 [[place] 1 - 2 each PO Q6HR PRN #10 tablet 03/01/21 Unknown Rx 5/325] Gabapentin 100 mg PO TID #30 capsule 03/06/21 Unknown Rx Meloxicam [Mobic] 7.5 mg PO QDAY #10 tablet 03/06/21 Unknown Rx Menthol/Camphor [[place] 1 applicatio TP BID #18 oint...g. 03/06/21 Unknown Rx Ointment] ED Physical Exam - General Limitations: Physical Limitation General appearance: alert, in no apparent distress - Head Head exam: Present: atraumatic, normocephalic - Eye Eye exam: Present: normal appearance - ENT ENT exam: Present: mucous membranes moist - Neck Neck exam: Present: normal inspection, full ROM. Absent: tenderness, meningismus - Respiratory Respiratory exam: Present: normal lung sounds bilaterally. Absent: respiratory distress, wheezes, rales, rhonchi, stridor, chest wall tenderness, accessory muscle use, decreased breath sounds, prolonged expiratory - Cardiovascular Cardiovascular Exam: Present: regular rate, normal rhythm, normal heart sounds. Absent: systolic murmur, diastolic murmur, rubs, gallop - Back Exam Back exam: Present: normal inspection, full ROM, paraspinal tenderness (left sided lumbar paraspinal ttp, no midline C-spine, T-spine or L-spine ttp, no step offs, no deformities ). Absent: vertebral tenderness - Neurological Exam Neurological exam: Present: alert, oriented X3, other (chronic left sided deficits weakness of the left arm and left leg ) - Psychiatric Psychiatric exam: Present: normal affect, normal mood - Skin Skin exam: Present: warm, dry, intact ED Course Vital Signs 03/06/21 03/06/21 03/06/21 09:24 12:24 12:38 Temperature 97.1 F L 98.7 F 98.2 F Pulse Rate 117 H 69 105 H Respiratory 20 19 18 Rate Blood Pressure 114/79 Blood Pressure 129/71 115/80 [Right] O2 Sat by Pulse 97 99 100 Oximetry ED Medical Decision Making - Lab Data Vital Signs 03/06/21 03/06/21 03/06/21 09:24 12:24 12:38 Temperature 97.1 F L 98.7 F 98.2 F Pulse Rate 117 H 69 105 H Respiratory 20 19 18 Rate Blood Pressure 114/79 Blood Pressure 129/71 115/80 [Right] O2 Sat by Pulse 97 99 100 Oximetry - Medical Decision Making Patient is a 55-year-old female presents emergency room with complaints of left lower back pain that radiates down her left leg that began approximately a week ago. She states her pain is worse with movement, laying flat, laying on that side. She denies any fall or injury. Patient was evaluated in the emergency department on 03/01/2021 which showed 1. In the area of interest in the left kidney there is a small cyst which does not enhance following contrast administration. 2. There is a hypodensity in the lower pole of the left kidney which measures 1.5 cm and shows mild enhancement measuring 29 Hounsfield units on precontrast images and 39 Hounsfield units on postcontrast images. This abnormality should be followed. Nonemergent urologic consultation is recommended. 3-6 month follow-up CT is recommended. she states that she made appointment with the urologist for 03/08/2021. She was diagnosed with lumbar radiculopathy and given [place] and Flexeril. She states despite the medications she is continuing to have pain. Patient has a history of CVA and has left-sided deficits, she denies any worsening of her left-sided deficits or acute numbness or weakness. She denies any fever, nausea, vomiting, diarrhea, chest pain, shortness of breath, abdominal pain, urinary symptoms, bowel or bladder incontinence, saddle numbness. she states she also has a hx of fibromyalgia and diabetes which she reports is well controlled. Initial vitals with tachycardia which improved upon repeat. On exam:left sided lumbar paraspinal ttp, no midline C-spine, T-spine or L-spine ttp, no step offs, no deformities. Patient is presenting with symptoms of lumbar radiculopathy versus sciatica. Patient had a full work-up in the emergency department 5 days ago. She has upcoming appointment with urologist. Patient will also be referred to neurosurgery/spine. Patient is currently seeing a pain specialist and is on a pain contract. Please see her [place] [employer] below, patient receives 90 tablets of Percocet a month. Patient's pain treated in the emergency department. Patient given prescription for medications. Advised patient Please continue to take the medications you are prescribed during your last emergency room visit. Please use new medications as prescribed. Follow-up with your primary care doctor. Keep your appointment for your urologist. Follow-up with a neurosurgeon/spine doctor. Return to emergency room for new or worse symptoms. 03/02/2021 1 03/01/2021 HYDROCODONE-ACETAMIN 5-325 MG 10.0 2 JU ALI [id number] [facility]RO[place] ([id number]) 0 25.0 MME Medicaid [place] 02/16/2021 1 02/16/2021 OXYCODONE-ACETAMINOPHEN 10-325 90.0 30 ER HOW [id number] [place] ([id number]) 0 45.0 MME Medicaid [place] 01/19/2021 1 01/19/2021 OXYCODONE-ACETAMINOPHEN 10-325 90.0 30 ER HOW [id number] [place] ([id number]) 0 45.0 MME Medicaid [place] 12/21/2020 1 12/21/2020 OXYCODONE-ACETAMINOPHEN 10-325 90.0 30 ER HOW [id number] [place] ([id number]) 0 45.0 [place] 11/23/2020 1 11/23/2020 OXYCODONE-ACETAMINOPHEN 10-325 90.0 30 ER HOW [id number] [place] ([id number]) 0 45.0 [place] 10/26/2020 1 10/26/2020 OXYCODONE-ACETAMINOPHEN 10-325 75.0 25 ER HOW [id number] [place] ([id number]) 0 45.0 [place] 09/30/2020 1 08/31/2020 BUTRANS 10 MCG/HR PATCH 4.0 28 ER HOW [id number] [place] ([id number]) 1 0.24 mg [place] 09/28/2020 1 09/28/2020 OXYCODONE-ACETAMINOPHEN 10-325 75.0 25 ER HOW [id number] [place] ([id number]) 0 45.0 [place] 08/31/2020 1 08/31/2020 OXYCODONE-ACETAMINOPHEN 10-325 75.0 25 ER HOW [id number] [place] ([id number]) 0 45.0 MME [place] Critical care attestation.: If time is entered above; I have spent that time in minutes in the direct care of this critically ill patient, excluding procedure time. ED Disposition Clinical Impression: Low back pain Qualifiers: Chronicity: acute Back pain laterality: left Sciatica presence: with sciatica Sciatica laterality: sciatica of left side Qualified Code(s): M54.42 - Lumbago with sciatica, left side Disposition: TO HOME OR SELFCARE Is pt being admited?: No Does the pt Need Aspirin: No Condition: Stable Instructions: Radicular Pain, Sciatica Additional Instructions: Please continue to take the medications you are prescribed during your last emergency room visit. Please use new medications as prescribed. Follow-up with your primary care doctor. Keep your appointment for your urologist. Follow-up with a neurosurgeon/spine doctor. Return to emergency room for new or worse symptoms. Prescriptions: Gabapentin 100 mg PO TID #30 capsule Meloxicam [Mobic] 7.5 mg PO QDAY #10 tablet Menthol/Camphor [[place] Ointment] 1 applicatio TP BID #18 oint...g. Referrals: KATHIE PRESSLEY [Other] - 2-3 Days your, urologist [Other] - 2-3 Days OLVIN VIRGEN II, MD [Staff Physician] - 2-3 Days Time of Disposition: 12:24 Print Language: SYRIAN
[2021-03-06 12:39] VITALS: BP 115/80
== END 2021-03-06 12:42 | disposition home or self-care (01) ==
LOC: ED 09:18
DX: M54.5 Low back pain (principal); I10 Essential (primary) hypertension; E11.9 Type 2 diabetes mellitus without complications; R56.9 Unspecified convulsions; Z98.890 Other specified postprocedural states; Z79.899 Other long term (current) drug therapy; Z88.8 Allergy status to other drugs, medicaments and biological substances; Z91.040 Latex allergy status
CPT/HCPCS: 96372; 99282; J1100; J1885

== ENCOUNTER 2021-11-09 22:50 | Emergency (ER) | payer MEDICAID ==
[2021-11-09] MEDS ORDERED: HYDROmorphone 1 MG/1 ML INJ IV ONE (23:37)
[2021-11-09] MEDS ORDERED: BUTALB/ACETAMINOPHEN/CAFFEINE TAB PO ONE (23:37)
[2021-11-09] MEDS ORDERED: ONDANSETRON 4 MG/2 ML INJ IV ONE (23:37)
[2021-11-09] MEDS ORDERED: levETIRAcetam 1000 MG/NS 0.75% 1,000 MG/100 ML BAG IV ONE (23:38)
--- NOTE | 2021-11-09 23:42 | Emergency Department Report ---
HPI - General Time Seen by Provider: 11/09/21 23:27 - HPI HPI: Room 22 Patient is a 55-year-old female present with a chief complaint of headache. Patient has history of 2 previous CVAs and has had a residual left-sided weakness and dysarthria from her CVAs. The patient states for the past week she has had a constant headache episodes of nausea vomiting. Patient states since her stroke 1 year ago she has intermittent spasms/cramping of her left upper extremity. Patient states she fell approximately 3 weeks ago. Patient currently gives her headache a score of 8/10 ED Past Medical Hx - Past Medical History Hx Hypertension: Yes Hx CVA: Yes (2010, 2020, residual left-sided weakness and dysarthria) Hx Diabetes: Yes Hx Liver Disease: Yes Hx Sickle Cell Disease: Yes Hx Seizures: Yes Hx Psychiatric Treatment: Yes (BIPOLAR, cutter) Additional medical history: lupus, Renal cyst, Lumbar radiculopathy - Surgical History Additional Surgical History: 2 brain surgeries, metal plate in head, GASTRIC BYPASS. HYSTERECTOMY - Family History Family history: no significant - Social History Smoking Status: Never Smoker Substance Use Type: Marijuana ("Medicinal"), Prescribed - Medications Home Medications: Home Medications Medication Instructions Recorded Confirmed Last Taken Type levETIRAcetam [Keppra TAB] 1,500 mg PO BID #60 tablet 07/01/14 09/19/18 08/10/18 Rx Venlafaxine [Effexor] 1 tab PO DAILY 03/13/15 09/19/18 08/10/18 History clonazePAM 1 mg PO BID PRN 04/09/16 08/11/18 08/10/18 History lamoTRIgine [LaMICtal] 150 mg PO BID 04/09/16 09/19/18 08/10/18 History Oxycodone HCl/Acetaminophen 1 each PO Q6HR PRN #20 tablet 08/04/16 08/11/18 08/10/18 Rx [Percocet 10/325 mg] Sulfamethoxazole/Trimethoprim 1 each PO BID #20 tablet 08/11/18 Unknown Rx [Bactrim DS TAB] lamoTRIgine [LaMICtal] 150 mg PO QDAY #30 tab 09/20/18 Unknown Rx traMADoL [Ultram] 50 mg PO Q6HR PRN #10 tablet 03/30/19 Unknown Rx Cyclobenzaprine [Flexeril] 10 mg PO TID PRN #10 tablet 03/01/21 Unknown Rx HYDROcodone/APAP 5-325 [[place] 1 - 2 each PO Q6HR PRN #10 tablet 03/01/21 Unknown Rx 5/325] Gabapentin 100 mg PO TID #30 capsule 03/06/21 Unknown Rx Meloxicam [Mobic] 7.5 mg PO QDAY #10 tablet 03/06/21 Unknown Rx Menthol/Camphor [[place] 1 applicatio TP BID #18 oint...g. 03/06/21 Unknown Rx Ointment] Butalb/Acetamin/Caff 50-325-40 2 tab PO Q8HR PRN #20 tablet 11/10/21 Unknown Rx [Fioricet 50-325-40] ED Review of Systems ROS: Stated complaint: SEVERE HEADACHE Other details as noted in HPI Constitutional: no symptoms reported Eyes: denies: eye pain ENT: denies: throat pain Respiratory: no symptoms reported Cardiovascular: denies: chest pain Endocrine: no symptoms reported Gastrointestinal: nausea, vomiting Genitourinary: denies: dysuria Musculoskeletal: myalgia Neurological: headache Physical Exam - Physical Exam Physical Exam: GENERAL: The patient is well-developed well-nourished female lying on stretcher intermittently complaining of left lower extremity spasms and headache. [] HEENT: Normocephalic. Atraumatic. Extraocular motions are intact. Patient has moist mucous membranes. NECK: Supple. Trachea midline CHEST/LUNGS: Clear to auscultation. There is no respiratory distress noted. HEART/CARDIOVASCULAR: Regular. There is no tachycardia. There is no gallop rub or murmur. ABDOMEN: Abdomen is soft, nontender. Patient has normal bowel sounds. There is no abdominal distention. SKIN: There is no rash. There is no edema. There is no diaphoresis. NEURO: The patient is awake, alert, and oriented. The patient is cooperative. The patient has left-sided hemiparesis and dysarthria from previous CVA. GCS 15 MUSCULOSKELETAL: There is no evidence of acute injury. ED Medical Decision Making - Lab Data Result diagrams: 11/09/21 23:41 11/09/21 23:41 Laboratory Tests 11/09/21 11/09/21 23:41 23:41 WBC 9.2 RBC 3.95 Hgb 11.4 Hct 36.7 MCV 93 MCH 29 MCHC 31 RDW 15.6 H Plt Count 263 Lymph % (Auto) 25.1 [place] % (Auto) 8.0 H Eos % (Auto) 2.1 Baso % (Auto) 0.7 Lymph # (Auto) 2.3 [place] # (Auto) 0.7 Eos # (Auto) 0.2 Baso # (Auto) 0.1 Seg Neutrophils % 64.1 Seg Neutrophils # 5.9 Sodium 141 Potassium 4.4 Chloride 104.5 Carbon Dioxide 21 L Anion Gap 20 BUN 20 H Creatinine 1.3 H Estimated GFR 51 BUN/Creatinine Ratio 15 Glucose 192 H Calcium 9.5 Magnesium 2.10 - Radiology Data Radiology results: report reviewed (CT head), image reviewed (CT head) [facility] [address] [id number] Cat Scan Report Signed Patient: KARLEE PADGETT MR#: [id number] : 1965 Acct:[id number] Age/Sex: 55 / F ADM Date: 11/09/21 Loc: ED Attending Dr: Ordering Physician: VALERIE CORDERO MD Date of Service: 11/09/21 Procedure(s): CT head/brain wo con Accession Number(s): [id number] cc: VALERIE CORDERO MD CT HEAD WITHOUT CONTRAST INDICATION / CLINICAL INFORMATION: Headache. TECHNIQUE: All CT scans at this location are performed using CT dose reduction for ALARA by means of automated exposure control. COMPARISON: 09/19/18. FINDINGS: HEMORRHAGE: None. EXTRA-AXIAL SPACES: Mildly prominent likely related to cortical atrophy. VENTRICULAR SYSTEM: Mildly enlarged likely related to central atrophy. CEREBRAL PARENCHYMA: Large area of encephalomalacia in the right temporoparietal region is stable. No new abnormality. No acute territorial infarct. MIDLINE SHIFT / HERNIATION: None. CEREBELLUM / BRAINSTEM: Mild generalized cerebellar atrophy without focal abnormality. ORBITS: Normal as visualized. SOFT TISSUES: No significant abnormality. SKULL: Right parietal craniotomy defect. Bilateral guido holes. PARANASAL SINUSES / MASTOID AIR CELLS: Normal as visualized. ADDITIONAL FINDINGS: None. IMPRESSION: No acute intracranial abnormality. Signer Name: Alexander Pal MD Signed: 11/10/2021 12:25 AM Workstation Name: [id number] Transcribed By: RT Dictated By: Alexander Pal MD Electronically Authenticated By: Alexander Pal MD Signed Date/Time: 11/10/2124 DD/ TD/TT: - Differential Diagnosis Headache, intracranial mass, ICH Critical care attestation.: If time is entered above; I have spent that time in minutes in the direct care of this critically ill patient, excluding procedure time. ED Disposition Clinical Impression: Headache Disposition: HOME / SELF CARE / HOMELESS Is pt being admited?: No Does the pt Need Aspirin: No Condition: Stable Instructions: General Headache Without Cause Additional Instructions: Return to the emergency department should you develop worsening symptoms, inability to tolerate food or liquids, high fever or any other concerns Prescriptions: Butalb/Acetamin/Caff 50-325-40 [Fioricet 50-325-40] 2 tab PO Q8HR PRN #20 tablet PRN Reason: Headache Referrals: SHANNAN ELLIS MD [Primary Care Provider] - 3-5 Days VALORIE SIMPSON MD [Staff Physician] - 3-5 Days (Dr. Simpson is a neurologist. Please follow-up with him for further evaluation and to be established as a patient) Time of Disposition: 01:49
--- NOTE | 2021-11-10 00:29 | Cat Scan Report ---
CT HEAD WITHOUT CONTRAST INDICATION / CLINICAL INFORMATION: Headache. TECHNIQUE: All CT scans at this location are performed using CT dose reduction for ALARA by means of automated exposure control. COMPARISON: 09/19/18. FINDINGS: HEMORRHAGE: None. EXTRA-AXIAL SPACES: Mildly prominent likely related to cortical atrophy. VENTRICULAR SYSTEM: Mildly enlarged likely related to central atrophy. CEREBRAL PARENCHYMA: Large area of encephalomalacia in the right temporoparietal region is stable. No new abnormality. No acute territorial infarct. MIDLINE SHIFT / HERNIATION: None. CEREBELLUM / BRAINSTEM: Mild generalized cerebellar atrophy without focal abnormality. ORBITS: Normal as visualized. SOFT TISSUES: No significant abnormality. SKULL: Right parietal craniotomy defect. Bilateral guido holes. PARANASAL SINUSES / MASTOID AIR CELLS: Normal as visualized. ADDITIONAL FINDINGS: None. IMPRESSION: No acute intracranial abnormality. Signer Name: Alexander Pal MD Signed: 11/10/2021 12:25 AM Workstation Name: [id number]
[2021-11-10 00:38] LABS: Basophils # (Auto) 0.1 K/mm3 (0.0-0.1); Basophils % (Auto) 0.7 % (0.0-1.8); Eosinophils # (Auto) 0.2 K/mm3 (0.0-0.4); Eosinophils % (Auto) 2.1 % (0.0-4.3); Hematocrit 36.7 % (30.3-42.9); Hemoglobin 11.4 gm/dl (10.1-14.3); Lymphocytes # (Auto) 2.3 K/mm3 (1.2-5.4); Lymphocytes % (Auto) 25.1 % (13.4-35.0); Mean Corpuscular HGB Conc 31 % (30-34); Mean Corpuscular Volume 93 fl (79-97); Monocytes # (Auto) 0.7 K/mm3 (0.0-0.8); Platelet Count 263 K/mm3 (140-440); Red Blood Count 3.95 M/mm3 (3.65-5.03); Red Cell Distribution Width 15.6 % (13.2-15.2)
[2021-11-10 00:57] LABS: Calcium 9.5 mg/dL (8.4-10.2)
[2021-11-10] MEDS ORDERED: LORazepam 2 MG/ML VIAL IV ONE (03:03)
[2021-11-10] MEDS ORDERED: HALOPERIDOL LACTATE 5 MG/1 ML INJ IM PRN (03:06)
[2021-11-10 04:20] VITALS: BP 132/71
[2021-11-10] MEDS ORDERED: LORazepam 2 MG/ML VIAL ONE (05:15)
--- NOTE | 2021-11-10 06:27 | Event Note ---
I evaluated patient. She is calm, cooperative. She desires to be discharged. She denies SI, HI, hallucinations. Her family member is at the bedside.
== END 2021-11-10 06:31 | disposition home or self-care (01) ==
LOC: ED 22:50
DX: R51.9 Headache, unspecified (principal); I10 Essential (primary) hypertension; E11.9 Type 2 diabetes mellitus without complications; Z86.73 Personal history of transient ischemic attack (TIA), and cerebral infarction without residual deficits; R56.9 Unspecified convulsions; F31.9 Bipolar disorder, unspecified; K76.9 Liver disease, unspecified; D57.00 Hb-SS disease with crisis, unspecified; Z98.890 Other specified postprocedural states; Z79.899 Other long term (current) drug therapy
CPT/HCPCS: 36415; 70450; 80048; 83735; 85025; 96372; 96374; 96375; 99284; J1170; J1630; J1953; J2060; J2405